=== PATIENT | male | born 1950 | race Caucasian/White ===

== ENCOUNTER → 2019-11-26 | Outpatient (CLI) | payer OTHER | END | disposition home or self-care (01) | LOC: CVU 06:21 | PROVIDERS: ATTEND Family Medicine Adult Medicine | DX: R09.89 Other specified symptoms and signs involving the circulatory and respiratory systems (principal) | CPT/HCPCS: 93306 ==

== ENCOUNTER 2020-04-20 09:41 | Outpatient (CLI) | payer OTHER | END 2020-04-20 23:59 | disposition home or self-care (01) | LOC: RAD 09:41 | PROVIDERS: ATTEND Radiology Diagnostic Radiology | DX: N28.1 Cyst of kidney, acquired (principal); N40.0 Benign prostatic hyperplasia without lower urinary tract symptoms; R09.89 Other specified symptoms and signs involving the circulatory and respiratory systems | CPT/HCPCS: 76770; 93880 ==